=== PATIENT | male | born 1955 | race African-American/Black ===

== ENCOUNTER 2018-02-10 06:13 | Emergency (ER) | payer MEDICARE ==
[2018-02-10] MEDS ORDERED: Ketorolac Tromethamine 30 MG/ML VIAL ONE (06:35)
[2018-02-10] MEDS ORDERED: Acetaminophen 325 MG TAB ONE (06:35)
== END 2018-02-10 07:06 | disposition home or self-care (01) ==
LOC: ERS 06:13
DX: S39.012A Strain of muscle, fascia and tendon of lower back, initial encounter (principal); Z71.6 Tobacco abuse counseling; F17.210 Nicotine dependence, cigarettes, uncomplicated; X50.9XXA Other and unspecified overexertion or strenuous movements or postures, initial encounter
CPT/HCPCS: 96372; 99406; J1885

== ENCOUNTER 2018-02-11 02:18 | Emergency (ER) | payer MEDICARE, MEDICAID ==
[2018-02-11] MEDS ORDERED: Acetaminophen 500 MG TAB ONE (02:33)
== END 2018-02-11 02:51 | disposition home or self-care (01) ==
LOC: ERS 02:18
DX: S39.012A Strain of muscle, fascia and tendon of lower back, initial encounter (principal); F17.210 Nicotine dependence, cigarettes, uncomplicated; X58.XXXA Exposure to other specified factors, initial encounter
CPT/HCPCS: 99283

== ENCOUNTER 2018-02-20 06:32 | Emergency (ER) | payer MEDICARE, MEDICAID ==
[2018-02-20 07:23] LABS: #Basophils 0.1 thou/uL (0.0-0.2); #Eosinphils 0.1 thou/uL (0.0-0.7); #Lymphocytes 1.4 thou/uL (1.20-3.40); #Monocytes 0.4 thou/uL (0.11-0.59); #Neutrophils 5.8 thou/uL (1.40-6.50); %Basophils 0.6 % (0.0-1.0); %Eosinophils 1.4 % (0.0-10.0); %Lymphocytes 18.1 % (21.0-51.0); %Monocytes 5.4 % (0.0-10.0); %Neutrophils 74.6 % (42.0-75.0); Hemoglobin 14.3 g/dL (14.0-18.0); Mean Corpuscular HGB CONC 32.9 g/dL (32.0-36.0); Mean Corpuscular Hemoglobin 31.3 pg (27.0-31.0); Mean Platelet Volume 6.5 fL (7.4-10.4); Platelet Count 219 thou/uL (130-400); RBC Distribution Width 12.1 % (11.5-14.5); Red Blood Cell (RBC) Count 4.58 mill/uL (4.70-6.10); White Blood Cell (WBC) Count 7.7 thou/uL (4.8-10.8)
[2018-02-20 07:42] LABS: ALT (SGPT) 16 U/L (8-55); AST (SGOT) 15 U/L (5-34); Albumin 3.9 g/dL (3.4-4.8); Alkaline Phosphatase 65 U/L (40-150); Anion Gap 12 mmol/L (10-20); BUN (Urea Nitrogen) 8 mg/dL (8.4-25.7); Bilirubin, Total 0.4 mg/dL (0.2-1.2); CK (CPK) 109 U/L (30-200); Calc. Creatinine Clearance 0 mL/min (70-130); Calcium 9.4 mg/dL (7.8-10.44); Carbon Dioxide 23 mmol/L (23-31); Chloride 107 mmol/L (98-107); Estimated GFR-MDRD Greater than 90; Glucose 132 mg/dL (80-115); Lipase 40 U/L (8-78); Potassium 3.8 mmol/L (3.5-5.1); Protein, Total 6.9 g/dL (5.8-8.1); Sodium 138 mmol/L (136-145)
[2018-02-20 07:46] LABS: Troponin I Less than 0.010 ng/mL (< 0.028)
--- NOTE | 2018-02-20 08:05 | CT ---
CT OF BRAIN WITHOUT CONTRAST: Comparison: None. History: Generalized weakness that began this morning when waking up. Technique: Multiple contiguous axial images were obtained in a CT of the brain without contrast. FINDINGS: This exam is limited secondary to motion artifact. There are scattered hypodensities in the subcortic al and periventricular white matter, likely secondary to small vessel ischemic disease. No large conf luent infarction is seen. There is no evidence of hydrocephalus, intracranial hemorrhage, or extraaxi al fluid collection. The calvarium and overlying soft tissues are unremarkable. The visualized paranasal sinuses and masto id air cells are well aerated. IMPRESSION: No evidence of acute intracranial abnormality. POS: [facility]
[2018-02-20 08:09] LABS: Bilirubin Negative (Negative); Blood, Urine Negative (Negative); Glucose, Urine (Dipstick) Negative (Negative); Leukocyte Negative (Negative); Nitrite Negative (Negative); Protein, Urine (Dipstick) Negative (Neg-Trace); Urobilinogen 0.2 mg/dL (0.2-1.0); pH, Urine 7.5 (5.0-9.0)
--- NOTE | 2018-02-20 08:09 | RAD ---
SINGLE VIEW OF THE CHEST: COMPARISON: None. HISTORY: Unsteady gait and cough. FINDINGS: Single view of the chest shows a normal sized cardiomediastinal silhouette. There is no evidence of c onsolidation, mass, or pleural effusion. The bones are unremarkable. IMPRESSION: No evidence of acute cardiopulmonary disease. POS: [facility]
[2018-02-20 08:10] LABS: Clarity Clear (Clear)
== END 2018-02-20 08:54 | disposition home or self-care (01) ==
LOC: ERS 06:32
DX: R53.1 Weakness (principal); F17.210 Nicotine dependence, cigarettes, uncomplicated; Z71.6 Tobacco abuse counseling
CPT/HCPCS: 70450; 71045; 80053; 81003; 82140; 82550; 82553; 83690; 83735; 84443; 84484; 85025; 93005; 99406

== ENCOUNTER 2018-02-20 15:22 | Emergency (ER) | payer MEDICARE, MEDICAID | END 2018-02-20 17:29 | disposition home or self-care (01) | LOC: ERS 15:22 | DX: Z00.00 Encounter for general adult medical examination without abnormal findings (principal); F17.210 Nicotine dependence, cigarettes, uncomplicated | CPT/HCPCS: 70450; 71045; 80053; 81003; 82140; 82550; 82553; 83690; 83735; 84443; 84484; 85025; 93005; 99406 ==

== ENCOUNTER 2018-04-14 06:39 | Emergency (ER) | payer MEDICARE, MEDICAID ==
--- NOTE | 2018-04-14 09:26 | ULT ---
VENOUS DUPLEX SONOGRAM LEFT LOWER EXTREMITY: History: Left leg pain and edema. FINDINGS: The left common femoral vein and greater saphenous junction were evaluated along with the femoral, de ep femoral, popliteal, and posterior tibial veins. There is good color and spectral doppler flow, com pression, and augmentation. IMPRESSION: No sonographic evidence of DVT left lower extremity. POS: [facility]
== END 2018-04-14 09:45 | disposition home or self-care (01) ==
LOC: ERS 06:39
DX: B35.3 Tinea pedis (principal); F17.210 Nicotine dependence, cigarettes, uncomplicated